=== PATIENT | female | born 1950 | race Caucasian/White ===

== ENCOUNTER 2025-10-14 16:51 | Inpatient (IN) | payer MEDICARE, SELFPAY ==
--- OUTSIDE RECORDS SUMMARY | 2025-10-14 17:17 | XMS_ITS | Clinical Summary ---
Author Organization [facility] Address [facility] [place] [address] Care Team Providers Care Deputy Bailiff Name Role Phone Daria Appiah MD Unavailable [phone] Sera Horowitz MD Primary Care Provider [phone] Allergies Active Allergy Reactions Criticality Noted Date Comments Cephalosporins Unknown 12/02/2018 Latex Unknown 12/02/2018 Mineral Oil Unknown 12/02/2018 Petrolatum Unknown 12/02/2018 Polyethylene Glycol (Macrogol) Unknown 12/02 Acetaminophen Unknown 12/02/2018 Medications Calcium Carbonate-Vitami n D (CALCIUM 600-D OR) Take 1 tablet by mouth daily. Active magnesium oxide 400 MG tablet Take 400 mg by mouth daily. Active triamterene-hydr ochlorothiazide 37.5-25 MG tablet Take 1 tablet by mouth daily. Active albuterol sulfate HFA 108 (90 Base) MCG/ACT inhaler Inhale 2 puffs into the lungs every 6 (six) hours as needed for Wheezing. Active Cholecalciferol (VITAMIN D) 2000 units Tab Take 1 tablet by mouth daily. Active Potassium 99 MG tablet Take 1 tablet by mouth daily. Active Active Problems Problem Noted Date Diagnosed Date Precordial chest pain 12/22/2018 COPD, severe 12/22/2018 Supplemental oxygen dependent 12/22/2018 Hypertension, essential 12/22/2018 Dyspnea on exertion 12/22/2018 Resolved Problems Problem Noted Date Diagnosed Date Resolved Date Daily consumption of alcohol 12/22/2018 07/23/2020 Family History Medical History Relation Comments Heart Attack Maternal Grandfather Relation Status Comments Father Maternal Grandfather Maternal Grandmother Paternal Grandfather Paternal Grandmother Social History Tobacco Use Types Packs/Day Years Used Date Smoking Tobacco: Former Smokeless Tobacco: Never Alcohol Use Standard Drinks/Week Comments No 0 (1 standard drink = 0.6 oz pur e alcohol) AUDIT-C Answer Date Recorded Frequency of Alcohol Consumption Never 12/18/2018 Average Number of Drinks Not on file 019 Frequency of Binge Drinking Not on file 04/2019 Comments Unknown Sex and Gender Information Value Date Recorded Sex Assigned at Not on file Legal Sex Female 9:26 PM CDT Gender Identity Not on file Sexual Orientation Not on file Last Filed Vital Signs Vital Sign Reading Time Taken Comments Blood Pressure 141/66 12/12/2018 5:09 PM BONDERIZER OPERATOR Pulse 82 12/12/2018 5:08 PM BONDERIZER OPERATOR Temperature - - Respiratory Rate 24 12/12/2018 5:08 PM BONDERIZER OPERATOR Oxygen Saturation 94% 12/12/2018 5:08 PM BONDERIZER OPERATOR on 3L oxygen Inhaled Oxygen Concentration - - Weight 102.1 kg (225 lb) 01/24/2024 2:49 PM CDT Height 177.8 cm (5' 10) 01/24/2024 2:49 PM CDT Body Mass Index 32.28 01/24/2024 2:49 PM CDT Plan of Treatment Health Maintenance Due Date Last Done Comments Colorectal Cancer Screening Colonoscopy (10 Years) 1951 Hepatitis C 1969 DTaP, Tdap and Td Vaccines ( 1 - Tdap) 1970 Pneumococcal Vaccine: 50+ Ye ars (1 of 2 - PCV) 1970 Mammogram Screening 1991 Zoster Vaccines (1 of 2) 2001 RSV Immunization or 60+ Years (1 - Risk 60-74 years 1-dose series) 2011 Annual Medicare Wellness Visit 2016 Dexa Scan (General) 2016 COVID-19 Vaccine (1 - 2024-2 6 season) 2025 Influenza Adult (#1) 2025 08/05/2021 Hepatitis A Vaccines Aged Out No long er eligible based on patient's age to complete this topic Meningococcal B Vaccine Aged Out No l onger eligible based on patient's age to complete this topic Meningococcal Vaccine Aged Out No eugene chan eligible based on patient's age to complete this topic RSV Immunizations Under 20 Months Aged Out No longer eligible based on patient's age to complete this topic Insurance [id number] MEDICARE MEDICARE [facility] Care Teams Deputy Bailiff Relationship Specialty [place] [address] [place] [address] PCP - General FAMILY PRACTICE 12/02/18 Daria Appiah MD [address] [place] [address] [place] Certified Nursing Assistant Instructor CARDIOVASCULAR DISEASE 12/02/18
[2025-10-14 17:30] VITALS: O2SAT 96
[2025-10-14 17:40] VITALS: BMI 26.5
[2025-10-14 17:59] VITALS: O2SAT 95
--- NOTE | 2025-10-14 19:43 | ADMGEN ---
1730 This patient, Marina Burgos, was admitted to 2nd Floor Room 209-1. Patient/family oriented to hospital policies and general routines including ID bracelet, bed and alarms, visiting hours, pain management, procedures, bathroom and other care routines, personal items, smoking policy, room service/diet, and visiting hours. She has left knee imobilizer and r brace to wrist and sling to r arm. she has a hx copd with o2 @ 4lpm per nc at all times. Information on how to activate the Rapid Response Team has been discussed. Patient/Family are encouraged to report perceived risks to care and to ask questions if they do not understand what they are told or what they should do.
[2025-10-14] MEDS: ACETAMINOPHEN 325 MG TABLET 650 MG PO (21:03)
[2025-10-14] MEDS: METOPROLOL TARTRATE 25 MG TABLET PO (21:04)
[2025-10-14] MEDS: UMECLIDINIUM/VILANTEROL 62.5-25 MCG ELLIPTA 1 PUFF INHALATION (21:05)
[2025-10-14 23:09] VITALS: BP 152/55; PULSE 82; RESP 17; TEMP 36.9; O2SAT 96
[2025-10-15 05:30] VITALS: O2SAT 96
[2025-10-15] MEDS: ACETAMINOPHEN 325 MG TABLET 650 MG PO ×2 (05:41→21:17)
[2025-10-15 05:43] LABS: Hematocrit 26.9 % (35.0-42.0); Hemoglobin 8.2 g/dL (11.7-13.8); Mean Corpuscular HGB Conc 30.5 g/dL (32-36); Mean Corpuscular Hemoglobin 30.6 pg (27.0-31.0); Mean Corpuscular Volume 100.4 fL (78.0-102.0); Platelet Count Result 289 K/mm3 (150-420); Red Blood Count 2.68 M/mm3 (4.20-5.40); White Blood Count 4.4 K/mm3 (4.8-10.8)
[2025-10-15 07:05] LABS: Alanine Aminotransferase 74 U/L (6-35); Albumin Level 3.6 g/dL (3.5-5.1); Alkaline Phosphatase 211 U/L (38-126); Aspartate Amino Transferase 61 U/L (14-36); Bilirubin,Total 0.4 mg/dL (0.2-1.3); Blood Urea Nitrogen 17 mg/dL (7-17); Calcium 9.1 mg/dL (8.4-10.2); Chloride 89 mmol/L (98-107); Estimated CRCL calculation 76 ml/min; Estimated Glomerular Filt Rate > 60; Glucose 107 mg/dL (65-110); Magnesium 2.0 mg/dL (1.6-2.3); Osmolality Calculated 279 mOsm/kg (285-295); Potassium 4.1 mmol/L (3.4-5.0); Sodium 134 mmol/L (137-145); Total Protein 6.7 g/dL (6.3-8.2)
[2025-10-15 07:10] LABS: Anion Gap 4.99999 mmol/L (4-12); Carbon Dioxide > 40 mmol/L (22-30)
[2025-10-15 08:00] VITALS: BP 125/53; PULSE 88; RESP 18; TEMP 36.4; O2SAT 97
[2025-10-15 08:42] VITALS: PULSE 88
[2025-10-15] MEDS: TRIAMTERENE 37.5 MG/HCTZ 25 MG (MAXZIDE) TABLET 2 TAB PO (08:42)
[2025-10-15] MEDS: ENOXAPARIN 40 MG/0.4 ML SYRINGE SUB-Q (08:42)
[2025-10-15] MEDS: METOPROLOL TARTRATE 25 MG TABLET PO ×2 (08:42→21:17)
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
[2025-10-15 16:00] VITALS: BP 129/59; PULSE 79; RESP 18; TEMP 36.6; O2SAT 96
[2025-10-15] MEDS: UMECLIDINIUM/VILANTEROL 62.5-25 MCG ELLIPTA 1 PUFF INHALATION (17:50)
[2025-10-16] VITALS: BP 122/53; PULSE 67; RESP 15; TEMP 36.4; O2SAT 93
[2025-10-16 05:30] VITALS: O2SAT 93
[2025-10-16 08:00] VITALS: BP 113/52; PULSE 87; RESP 16; TEMP 36.4; O2SAT 98
[2025-10-16] MEDS: ACETAMINOPHEN 325 MG TABLET 650 MG PO ×3 (08:27→20:26)
[2025-10-16 10:13] VITALS: PULSE 87
[2025-10-16] MEDS: TRIAMTERENE 37.5 MG/HCTZ 25 MG (MAXZIDE) TABLET 2 TAB PO (10:13)
[2025-10-16] MEDS: METOPROLOL TARTRATE 25 MG TABLET PO ×2 (10:13→20:25)
[2025-10-16] MEDS: ENOXAPARIN 40 MG/0.4 ML SYRINGE SUB-Q (10:13)
[2025-10-16] MEDS: SENNA/DOCUSATE SODIUM TABLET 1 TAB PO (11:03)
[2025-10-16 16:40] VITALS: BP 128/57; PULSE 87; RESP 18; TEMP 36.6; O2SAT 98
[2025-10-16] MEDS: UMECLIDINIUM/VILANTEROL 62.5-25 MCG ELLIPTA 1 PUFF INHALATION (18:00)
[2025-10-16 20:25] VITALS: PULSE 98
--- NOTE | 2025-10-16 23:00 | PC.NURSE ---
Patient wore BiPap for approximately 5 minutes and said she couldn't stand it any longer and had nurse remove it.
[2025-10-17] VITALS (7 sets, daily range): BP systolic 122–137; BP diastolic 53–60; PULSE 82–98; RESP 17–18; TEMP 36.4–36.7; O2SAT 95
[2025-10-17] MEDS: ENOXAPARIN 40 MG/0.4 ML SYRINGE SUB-Q (08:04)
[2025-10-17] MEDS: TRIAMTERENE 37.5 MG/HCTZ 25 MG (MAXZIDE) TABLET 2 TAB PO (08:04)
[2025-10-17] MEDS: ACETAMINOPHEN 325 MG TABLET 650 MG PO ×3 (08:04→21:04)
[2025-10-17] MEDS: METOPROLOL TARTRATE 25 MG TABLET PO ×2 (08:04→21:03)
[2025-10-17] MEDS: UMECLIDINIUM/VILANTEROL 62.5-25 MCG ELLIPTA 1 PUFF INHALATION (17:51)
[2025-10-18] VITALS (7 sets, daily range): BP systolic 135–142; BP diastolic 51–59; PULSE 74–85; RESP 16–20; TEMP 36.4–37.1; O2SAT 95–97
[2025-10-18] MEDS: ACETAMINOPHEN 325 MG TABLET 650 MG PO ×2 (04:56→21:21)
[2025-10-18 07:33] LABS: Hematocrit 26.2 % (35.0-42.0); Hemoglobin 8.2 g/dL (11.7-13.8); Mean Corpuscular HGB Conc 31.3 g/dL (32-36); Mean Corpuscular Hemoglobin 30.9 pg (27.0-31.0); Mean Corpuscular Volume 98.9 fL (78.0-102.0); Platelet Count Result 275 K/mm3 (150-420); Red Blood Count 2.65 M/mm3 (4.20-5.40); White Blood Count 3.8 K/mm3 (4.8-10.8)
[2025-10-18 07:44] LABS: Alanine Aminotransferase 69 U/L (6-35); Albumin Level 3.8 g/dL (3.5-5.1); Alkaline Phosphatase 199 U/L (38-126); Aspartate Amino Transferase 59 U/L (14-36); Bilirubin,Total 0.3 mg/dL (0.2-1.3); Blood Urea Nitrogen 14 mg/dL (7-17); Calcium 9.2 mg/dL (8.4-10.2); Carbon Dioxide > 40 mmol/L (22-30); Chloride 88 mmol/L (98-107); Estimated CRCL calculation 80 ml/min; Estimated Glomerular Filt Rate > 60; Glucose 108 mg/dL (65-110); Magnesium 2.0 mg/dL (1.6-2.3); Osmolality Calculated 275 mOsm/kg (285-295); Potassium 4.0 mmol/L (3.4-5.0); Sodium 132 mmol/L (137-145); Total Protein 7.2 g/dL (6.3-8.2)
[2025-10-18 07:53] LABS: Anion Gap 4.0 mmol/L (4-12)
[2025-10-18] MEDS: TRIAMTERENE 37.5 MG/HCTZ 25 MG (MAXZIDE) TABLET 2 TAB PO (09:24)
[2025-10-18] MEDS: SENNA/DOCUSATE SODIUM TABLET 1 TAB PO (09:25)
[2025-10-18] MEDS: METOPROLOL TARTRATE 25 MG TABLET PO ×2 (09:25→21:20)
[2025-10-18] MEDS: ENOXAPARIN 40 MG/0.4 ML SYRINGE SUB-Q (09:25)
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
[2025-10-18] MEDS: UMECLIDINIUM/VILANTEROL 62.5-25 MCG ELLIPTA 1 PUFF INHALATION (17:51)
[2025-10-19] VITALS (7 sets, daily range): BP systolic 122–132; BP diastolic 50–59; PULSE 79–95; RESP 18; TEMP 36.3–37.6; O2SAT 96
[2025-10-19] MEDS: ACETAMINOPHEN 325 MG TABLET 650 MG PO ×2 (09:43→21:24)
[2025-10-19] MEDS: TRIAMTERENE 37.5 MG/HCTZ 25 MG (MAXZIDE) TABLET 2 TAB PO (09:43)
[2025-10-19] MEDS: ENOXAPARIN 40 MG/0.4 ML SYRINGE SUB-Q (09:43)
[2025-10-19] MEDS: METOPROLOL TARTRATE 25 MG TABLET PO ×2 (09:45→21:23)
[2025-10-19] MEDS: UMECLIDINIUM/VILANTEROL 62.5-25 MCG ELLIPTA 1 PUFF INHALATION (18:06)
[2025-10-20] VITALS: BP 130/67; PULSE 89; RESP 16; TEMP 36.8; O2SAT 96
[2025-10-20 05:30] VITALS: O2SAT 96
[2025-10-20 07:45] VITALS: BP 118/59; PULSE 97; RESP 18; TEMP 36.4; O2SAT 96
[2025-10-20 08:30] VITALS: PULSE 97; RESP 18; O2SAT 96
[2025-10-20] MEDS: ENOXAPARIN 40 MG/0.4 ML SYRINGE SUB-Q (09:24)
[2025-10-20] MEDS: ACETAMINOPHEN 325 MG TABLET 650 MG PO ×2 (09:24→21:14)
[2025-10-20 09:25] VITALS: PULSE 97
[2025-10-20] MEDS: METOPROLOL TARTRATE 25 MG TABLET PO ×2 (09:25→21:14)
[2025-10-20] MEDS: TRIAMTERENE 37.5 MG/HCTZ 25 MG (MAXZIDE) TABLET 2 TAB PO (09:25)
--- NOTE | 2025-10-20 10:05 | PC.NURSE ---
Patient going to Dr. hendricks. Transferred from bed to wheelchair with 1 ast. Taken down via wheelchair, left via private vehicle with daughter. Dr. hendricks is at [address] in [facility]. Patient wearing portable 02 from home.
--- NOTE | 2025-10-20 16:10 | PC.NURSE ---
Patient back from MD appointment. This nurse assisted patient to room via wheelchair. New orders give to Kathryn tier truck driver. Patient able to transfer from wheelchair to commode and to bed with estevan walker. Patient transferred well. Resting in bed with hbo elevated.
[2025-10-20 16:15] VITALS: BP 140/61; PULSE 74; RESP 18; TEMP 36.6; O2SAT 98
[2025-10-20] MEDS: UMECLIDINIUM/VILANTEROL 62.5-25 MCG ELLIPTA 1 PUFF INHALATION (18:32)
[2025-10-20] MEDS: CEPHALEXIN 500 MG CAPSULE PO ×2 (18:32→23:00)
[2025-10-21] VITALS (7 sets, daily range): BP systolic 108–126; BP diastolic 51–60; PULSE 79–80; RESP 16–18; TEMP 36.3–36.6; O2SAT 95–97
[2025-10-21 05:38] LABS: Hematocrit 25.6 % (35.0-42.0); Hemoglobin 8.1 g/dL (11.7-13.8); Mean Corpuscular HGB Conc 31.6 g/dL (32-36); Mean Corpuscular Hemoglobin 31.3 pg (27.0-31.0); Mean Corpuscular Volume 98.8 fL (78.0-102.0); Platelet Count Result 233 K/mm3 (150-420); Red Blood Count 2.59 M/mm3 (4.20-5.40); White Blood Count 3.4 K/mm3 (4.8-10.8)
[2025-10-21 05:52] LABS: Alanine Aminotransferase 78 U/L (6-35); Albumin Level 3.6 g/dL (3.5-5.1); Alkaline Phosphatase 191 U/L (38-126); Aspartate Amino Transferase 68 U/L (14-36); Bilirubin,Total 0.4 mg/dL (0.2-1.3); Blood Urea Nitrogen 20 mg/dL (7-17); Calcium 9.1 mg/dL (8.4-10.2); Chloride 86 mmol/L (98-107); Estimated CRCL calculation 82 ml/min; Estimated Glomerular Filt Rate > 60; Glucose 103 mg/dL (65-110); Magnesium 2.0 mg/dL (1.6-2.3); Osmolality Calculated 276 mOsm/kg (285-295); Potassium 3.9 mmol/L (3.4-5.0); Sodium 132 mmol/L (137-145); Total Protein 6.7 g/dL (6.3-8.2)
[2025-10-21 06:00] LABS: Anion Gap 5.99999 mmol/L (4-12); Carbon Dioxide > 40 mmol/L (22-30)
[2025-10-21] MEDS: CEPHALEXIN 500 MG CAPSULE PO ×3 (06:27→17:08)
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
[2025-10-21] MEDS: TRIAMTERENE 37.5 MG/HCTZ 25 MG (MAXZIDE) TABLET 2 TAB PO (09:24)
[2025-10-21] MEDS: ENOXAPARIN 40 MG/0.4 ML SYRINGE SUB-Q (09:24)
[2025-10-21] MEDS: ACETAMINOPHEN 500 MG TABLET 1000 MG PO ×2 (09:24→20:46)
[2025-10-21] MEDS: METOPROLOL TARTRATE 25 MG TABLET PO ×2 (09:25→20:46)
[2025-10-21] MEDS: UMECLIDINIUM/VILANTEROL 62.5-25 MCG ELLIPTA 1 PUFF INHALATION (17:08)
[2025-10-22] MEDS: CEPHALEXIN 500 MG CAPSULE PO ×5 (00:04→23:13)
[2025-10-22 05:30] VITALS: O2SAT 95
[2025-10-22] MEDS: ACETAMINOPHEN 500 MG TABLET 1000 MG PO ×4 (06:11→23:37)
[2025-10-22 08:00] VITALS: BP 116/53; PULSE 81; RESP 18; TEMP 36; O2SAT 97
[2025-10-22] MEDS: TRIAMTERENE 37.5 MG/HCTZ 25 MG (MAXZIDE) TABLET 2 TAB PO (09:29)
[2025-10-22 09:30] VITALS: PULSE 81
[2025-10-22] MEDS: ENOXAPARIN 40 MG/0.4 ML SYRINGE SUB-Q (09:30)
[2025-10-22] MEDS: METOPROLOL TARTRATE 25 MG TABLET PO ×2 (09:30→21:04)
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
[2025-10-22 16:00] VITALS: BP 132/62; PULSE 82; RESP 18; TEMP 36.6; O2SAT 97
[2025-10-22] MEDS: UMECLIDINIUM/VILANTEROL 62.5-25 MCG ELLIPTA 1 PUFF INHALATION (18:57)
[2025-10-22 20:00] VITALS: PULSE 86; RESP 18; O2SAT 98
[2025-10-22 21:04] VITALS: PULSE 86
[2025-10-23] VITALS: BP 130/70; PULSE 86; RESP 18; TEMP 36.7; O2SAT 98
[2025-10-23 05:30] VITALS: O2SAT 95
[2025-10-23] MEDS: CEPHALEXIN 500 MG CAPSULE PO ×3 (06:25→17:27)
[2025-10-23 08:00] VITALS: BP 111/51; PULSE 72; RESP 18; TEMP 36.1; O2SAT 97
[2025-10-23] MEDS: ENOXAPARIN 40 MG/0.4 ML SYRINGE SUB-Q (08:54)
[2025-10-23] MEDS: TRIAMTERENE 37.5 MG/HCTZ 25 MG (MAXZIDE) TABLET 2 TAB PO (08:54)
[2025-10-23] MEDS: ACETAMINOPHEN 500 MG TABLET 1000 MG PO ×2 (08:54→20:58)
[2025-10-23 08:55] VITALS: PULSE 72
[2025-10-23] MEDS: METOPROLOL TARTRATE 25 MG TABLET PO ×2 (08:55→20:58)
[2025-10-23 16:00] VITALS: BP 115/51; PULSE 67; RESP 18; TEMP 36.4; O2SAT 94
[2025-10-23] MEDS: UMECLIDINIUM/VILANTEROL 62.5-25 MCG ELLIPTA 1 PUFF INHALATION (17:27)
[2025-10-24] VITALS: BP 135/55; PULSE 77; RESP 15; TEMP 36.6; O2SAT 95
[2025-10-24] MEDS: CEPHALEXIN 500 MG CAPSULE PO ×5 (00:29→23:59)
[2025-10-24] MEDS: ACETAMINOPHEN 500 MG TABLET 1000 MG PO ×3 (04:09→21:59)
[2025-10-24 05:30] VITALS: O2SAT 97
[2025-10-24 08:00] VITALS: BP 147/80; PULSE 69; RESP 18; TEMP 36; O2SAT 95
[2025-10-24 08:22] VITALS: PULSE 70
[2025-10-24] MEDS: METOPROLOL TARTRATE 25 MG TABLET PO ×2 (08:22→21:59)
[2025-10-24] MEDS: TRIAMTERENE 37.5 MG/HCTZ 25 MG (MAXZIDE) TABLET 2 TAB PO (08:22)
[2025-10-24] MEDS: ENOXAPARIN 40 MG/0.4 ML SYRINGE SUB-Q (08:23)
[2025-10-24 16:00] VITALS: BP 115/55; PULSE 80; RESP 18; TEMP 36.8; O2SAT 97
[2025-10-24] MEDS: UMECLIDINIUM/VILANTEROL 62.5-25 MCG ELLIPTA 1 PUFF INHALATION (17:28)
[2025-10-24 21:59] VITALS: PULSE 72
[2025-10-25] VITALS: BP 122/61; PULSE 72; RESP 18; TEMP 36.6; O2SAT 95
[2025-10-25 05:30] VITALS: O2SAT 96
[2025-10-25] MEDS: CEPHALEXIN 500 MG CAPSULE PO ×3 (06:38→17:18)
[2025-10-25 08:00] VITALS: BP 121/63; PULSE 83; RESP 18; TEMP 36.2; O2SAT 96
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
[2025-10-25] MEDS: TRIAMTERENE 37.5 MG/HCTZ 25 MG (MAXZIDE) TABLET 2 TAB PO (08:38)
[2025-10-25] MEDS: ENOXAPARIN 40 MG/0.4 ML SYRINGE SUB-Q (08:38)
[2025-10-25 08:39] VITALS: PULSE 83
[2025-10-25] MEDS: METOPROLOL TARTRATE 25 MG TABLET PO ×2 (08:39→21:35)
[2025-10-25] MEDS: ACETAMINOPHEN 500 MG TABLET 1000 MG PO ×2 (08:39→21:35)
[2025-10-25 16:00] VITALS: BP 141/62; PULSE 61; RESP 17; TEMP 36.6; O2SAT 98
[2025-10-25] MEDS: UMECLIDINIUM/VILANTEROL 62.5-25 MCG ELLIPTA 1 PUFF INHALATION (17:18)
[2025-10-26] VITALS: BP 130/55; PULSE 73; RESP 17; TEMP 36.1; O2SAT 95
[2025-10-26] MEDS: CEPHALEXIN 500 MG CAPSULE PO ×3 (00:59→12:55)
[2025-10-26 05:30] VITALS: O2SAT 98
[2025-10-26 08:00] VITALS: BP 127/55; PULSE 77; RESP 17; TEMP 36.2; O2SAT 98
[2025-10-26] MEDS: TRIAMTERENE 37.5 MG/HCTZ 25 MG (MAXZIDE) TABLET 2 TAB PO (09:01)
[2025-10-26] MEDS: ENOXAPARIN 40 MG/0.4 ML SYRINGE SUB-Q (09:01)
[2025-10-26 09:02] VITALS: PULSE 77
[2025-10-26] MEDS: METOPROLOL TARTRATE 25 MG TABLET PO (09:02)
[2025-10-26] MEDS: ACETAMINOPHEN 500 MG TABLET 1000 MG PO (09:02)
--- NOTE | 2025-10-26 12:39 | PM.DS ---
DS: Summary Time Spent with Patient Time attestation: Total time spent providing and/or coordinating discharge services: Discharge Plan Discharge Attending physician on discharge: Jayy Caba Consulting providers: Kandis Amor Discharging Clinician: Sujata Mcgregor Patient Disposition: Home with Home Health Service Activity: no driving, follow weight bearing status and other - see discharge instructions Diet: as tolerated Wound Care Instructions: other - see discharge instructions Discharge Instructions: Toe touch weight bearing to left lower extremity. Keep brace that your orthopedic surgeon provided you on at all times. Non weight bearing to the right upper extremity. You may wear the sling for comfort. Please use 5L oxygen by NC during the day. Use your BIPAP (according to how it is prescribed) machine at night and when you nap. Your next follow up appointment with orthopedic surgery is on 11/10/2025. Wound care for your left knee: Remove the old dressing, clean with wound cleanser, pat dry, apply xeroform guaze and 4x4 guaze. Wrap with michael bandage. Please complete all antibiotics prescribed even if you are feeling better. Please monitor for signs or symptoms of infection including redness, swelling, increased pain, drainage, fevers, and contact your surgeon if you notice these. Patient Instructions: Antibiotic Form Patient Language: Togolese Stand Alone Forms: General Discharge Information Follow-up/Referrals: iram Donato [Other] Referral Note: Call your PCP for an appointment to be seen within 1-2 weeks of discharge. Discharge Medications: New cephalexin 500 mg Capsule 500 mg PO Q6HR Qty: 4 0RF sennosides-docusate sodium [Senokot-S] 8.6-50 mg Tablet 1 tab PO BID PRN (Reason: constipation) Qty: 30 0RF acetaminophen 500 mg Tablet 1,000 mg PO Q12HR Qty: 30 0RF acetaminophen 500 mg Tablet 1,000 mg PO Q12H PRN (Reason: Mild Pain (1-3) Or Fever) Qty: 30 0RF Continued aloe vera extract-allantoin 0.5 % cream 1 applic topical Q8H PRN (Reason: rash) Patient Comments: Patient brought from home. apply to arms as needed. triamterene-hydrochlorothiazid 37.5-25 mg tablet 2 tablet PO DAILY Qty: 60 0RF Patient Comments: 1st dose to be 10/15/25 albuterol sulfate 90 mcg/actuation HFA aerosol inhaler 2 inh INHALATION Q12H Qty: 8.5 0RF Patient Comments: 1st dose to start at 1999 tonight metoprolol tartrate 25 mg tablet 25 mg PO Q12H Qty: 60 0RF Patient Comments: next dose due 10/14/25 evening umeclidinium-vilanterol [Anoro Ellipta] 62.5-25 mcg/actuation blister with device 1 inh INHALATION Q24H Qty: 60 0RF Patient Comments: to start 10/15/25 Discontinued enoxaparin [Lovenox] 40 mg/0.4 mL syringe 40 mg subcut DAILY Patient Comments: Next dose due Date of admission: 10/14/25 16:51 Primary Care Provider: iram Donato Admitting Provider: Jayy Caba Attending physician on admission: Jayy Caba Condition: Stable
[2025-10-26 16:00] VITALS: BP 128/72; PULSE 70; RESP 16; TEMP 36.6; O2SAT 96
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
--- NOTE | 2025-10-30 09:18 | PC.NURSE ---
Unable to complete follow up call, number is not correct
== END 2025-10-26 16:50 | disposition home health service (06) | DRG 560 ==
PROVIDERS: Nurse Practitioner Family; Admitting Provider Internal Medicine; Visit Provider Internal Medicine
DX: S42.291D Other displaced fracture of upper end of right humerus, subsequent encounter for fracture with routine healing (principal); J96.11 Chronic respiratory failure with hypoxia; S52.611D Displaced fracture of right ulna styloid process, subsequent encounter for closed fracture with routine healing; S82.292D Other fracture of shaft of left tibia, subsequent encounter for closed fracture with routine healing; S82.832D Other fracture of upper and lower end of left fibula, subsequent encounter for closed fracture with routine healing; S52.91XD Unspecified fracture of right forearm, subsequent encounter for closed fracture with routine healing; I10 Essential (primary) hypertension; D64.9 Anemia, unspecified; J44.9 Chronic obstructive pulmonary disease, unspecified; Z99.81 Dependence on supplemental oxygen; V49.60XD Unspecified car occupant injured in collision with unspecified motor vehicles in traffic accident, subsequent encounter
CPT/HCPCS: 36415; 80053; 83735; 85027; 97110; 97166; 97530; 97535; A9270; J1650